=== PATIENT | male | born 1985 | race Caucasian/White ===

== ENCOUNTER 2017-12-30 16:55 | Emergency (ER) | payer OTHER ==
--- NOTE | 2017-12-30 17:28 | PDOC ---
Rapid Medical Evaluation Time Seen by Provider: 12/30/17 17:21 Medical Evaluation: Allergies Allergy/AdvReac Type Severity Reaction Status Date / Time No Known Allergies Allergy Verified 08/06/17 19:56 12/30/17 17:25 Pt. is a 32 y/o M who presents to the ED after potential TB exposure at work. Pt is a [employer]. No current symptoms. Denies fevers, chills, night sweats, cough, hemoptysis. Exam: AAOx3 breathing easily Orders: Nothing Pt to proceed to ED for evaluation Discharge Disposition - Diagnosis Exposure - Referrals - Patient Instructions - Post Discharge Activity
[2017-12-30 17:33] VITALS: BP 162/76; PULSE 77; TEMP 98.3; BMI 27.5
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
== END 2017-12-30 17:58 | disposition home or self-care (01) ==
LOC: JER 16:55 → JERFT 16:55
DX: Z20.1 Contact with and (suspected) exposure to tuberculosis (principal); Y35.891A Legal intervention involving other specified means, law enforcement official injured, initial encounter; Y93.89 Activity, other specified; Y92.89 Other specified places as the place of occurrence of the external cause; Y99.0 Civilian activity done for income or pay
CPT/HCPCS: 99281-25

== ENCOUNTER 2018-05-14 22:09 | Emergency (ER) | payer OTHER ==
[2018-05-14 22:15] VITALS: BP 137/75; PULSE 84; TEMP 99.2; BMI 28.2
--- NOTE | 2018-05-14 22:36 | PDOC ---
History of Present Illness - General Chief Complaint: Injury Stated Complaint: INJURY/[employer] Time Seen by Provider: 05/14/18 22:20 History Source: Patient Exam Limitations: No Limitations - History of Present Illness Initial Comments: 05/14/18 22:30 32 yr male with c/o pain to the right knee after slip and fall on floor that had oil was placed. pt has injury to the right knee previous knee contusion. Past History - Past Medical History Allergies/Adverse Reactions: Allergies Allergy/AdvReac Type Severity Reaction Status Date / Time No Known Allergies Allergy Verified 05/14/18 22:13 Home Medications: Ambulatory Orders NK [No Known Home Medication] 06/10/16 COPD: No - Suicide/Smoking/Psychosocial Hx Smoking History: Never smoked Have you smoked in the past 12 months: No Hx Alcohol Use: No Drug/Substance Use Hx: No Substance Use Type: None *Physical Exam - Vital Signs Last Vital Signs Temp Pulse Resp BP Pulse Ox 99.2 F 84 18 137/75 98 05/14/18 22:13 05/14/18 22:13 05/14/18 22:13 05/14/18 22:13 05/14/18 22:13 Moderate Sedation - Procedure Monitoring Vital Signs: Procedure Monitoring Vital Signs Temperature 99.2 F 05/14/18 22:13 Pulse Rate 84 05/14/18 22:13 Respiratory Rate 18 05/14/18 22:13 Blood Pressure 137/75 05/14/18 22:13 O2 Sat by Pulse Oximetry (%) 98 05/14/18 22:13 ED Treatment Course - RADIOLOGY Radiology Studies Ordered: Category Date Time Status KNEE 3 POS-RIGHT [RAD] Stat Radiology 05/14/18 22:23 Ordered *DC/Admit/Observation/Transfer Diagnosis at time of Disposition: Contusion of knee, right Qualifiers: Encounter type: sequela Qualified Code(s): S80.01XS - Contusion of right knee, sequela - Discharge Dispostion Disposition: HOME Condition at time of disposition: Good - Referrals Referrals: Chirag Gomez MD [Staff Physician] - - Patient Instructions Additional Instructions: apply ice every 2hrs for 20 minutes for the next 2 days take ibuprofen for pain as needed follow up with the orthopedist for follow up - Post Discharge Activity Forms/Work/School Notes: Back to Work
== END 2018-05-14 22:43 | disposition home or self-care (01) ==
LOC: JERFT 22:09
DX: M25.561 Pain in right knee (principal); W01.0XXA Fall on same level from slipping, tripping and stumbling without subsequent striking against object, initial encounter; Y93.89 Activity, other specified; Y92.89 Other specified places as the place of occurrence of the external cause; Y99.0 Civilian activity done for income or pay; Y35.891A Legal intervention involving other specified means, law enforcement official injured, initial encounter
CPT/HCPCS: 73562-TC-RT-FY; 99281-25

== ENCOUNTER 2018-06-24 18:06 | Emergency (ER) | payer OTHER ==
[2018-06-24 18:14] VITALS: BP 147/87; PULSE 70; BMI 28.5
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
== END 2018-06-24 20:16 | disposition home or self-care (01) ==
LOC: JER 18:06
DX: J70.5 Respiratory conditions due to smoke inhalation (principal); X02.1XXA Exposure to smoke in controlled fire in building or structure, initial encounter; Y93.F2 Activity, caregiving, lifting; Y92.038 Other place in apartment as the place of occurrence of the external cause; Y99.0 Civilian activity done for income or pay
CPT/HCPCS: 99282-25

== ENCOUNTER 2018-12-30 17:38 | Emergency (ER) | payer OTHER ==
[2018-12-30 17:47] VITALS: BP 132/81; PULSE 78; TEMP 98.3; BMI 29.4
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
== END 2018-12-30 17:59 | disposition home or self-care (01) ==
LOC: JERFT 17:38
DX: Z77.21 Contact with and (suspected) exposure to potentially hazardous body fluids (principal)
CPT/HCPCS: 99281-25

== ENCOUNTER 2019-01-09 20:54 | Emergency (ER) | payer OTHER ==
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
[2019-01-09 21:05] VITALS: BP 136/71; PULSE 109; TEMP 99.1; BMI 29.2
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
== END 2019-01-09 21:17 | disposition home or self-care (01) ==
LOC: JER 20:54
DX: S46.812A Strain of other muscles, fascia and tendons at shoulder and upper arm level, left arm, initial encounter (principal); S00.83XA Contusion of other part of head, initial encounter; Y35.811A Legal intervention involving manhandling, law enforcement official injured, initial encounter; Y93.89 Activity, other specified; Y92.89 Other specified places as the place of occurrence of the external cause; Y99.0 Civilian activity done for income or pay
CPT/HCPCS: 99281-25

== ENCOUNTER 2019-05-30 03:19 | Emergency (ER) | payer OTHER ==
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
[2019-05-30 03:35] VITALS: BP 147/76; PULSE 88; TEMP 97.6; BMI 29.8
--- NOTE | 2019-05-30 03:37 | PDOC ---
*Physical Exam - Vital Signs Last Vital Signs Temp Pulse Resp BP Pulse Ox 97.6 F 88 17 147/76 98 05/30/19 03:30 05/30/19 03:30 05/30/19 03:30 05/30/19 03:30 05/30/19 03:30 Medical Decision Making - Medical Decision Making 05/30/19 03:37 Patient seen by the advanced practice provider under my direct supervision. Ancillary testing reviewed as necessary. I agree with plan as outlined by the advanced practice provider. Discharge - Discharge Information Problems reviewed: Yes Clinical Impression/Diagnosis: Finger pain, right Hand injury Qualifiers: Encounter type: initial encounter Laterality: right Qualified Code(s): S69.91XA - Unspecified injury of right wrist, hand and finger(s), initial encounter Condition: Fair Disposition: HOME - Follow up/Referral Referrals: Aime Stephens MD [Staff Physician] - - Patient Discharge Instructions Patient Printed Discharge Instructions: Finger Sprain Additional Instructions: Apply ice to the area for the first 24 hours. Then alternate with ice and heat after. Take ibuprofen every 6 hours as needed for pain. Follow-up with an hand doctor if symptoms persist. A referral was given to you today. Return to the emergency room for any worsening symptoms. - Post Discharge Activity Work/Back to School Note: Back to Work
== END 2019-05-30 04:19 | disposition home or self-care (01) ==
LOC: JER 03:19
CPT/HCPCS: 73130-TC-RT-FY; 73140-TC-RT-FY; 99281-25

== ENCOUNTER 2020-03-06 23:29 | Emergency (ER) | payer OTHER ==
[2020-03-06 23:38] VITALS: BP 140/90; PULSE 90; TEMP 98.2
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
== END 2020-03-06 23:51 | disposition home or self-care (01) ==
LOC: FER 23:29
DX: S56.911A Strain of unspecified muscles, fascia and tendons at forearm level, right arm, initial encounter (principal)
CPT/HCPCS: 99282-25